=== PATIENT | female | born 1990 | race Caucasian/White ===

== ENCOUNTER 2020-03-04 13:31 | Emergency (ER) | payer OTHER, SELFPAY ==
[2020-03-04 13:45] VITALS: BP 125/65; PULSE 93; RESP 20; TEMP 36.6; O2SAT 98
--- NOTE | 2020-03-04 13:55 | ED.ABDPAIN ---
HPI - Abdominal Pain General Chief Complaint: Abdominal Pain Stated Complaint: Abdomen Pain History of Present Illness HPI narrative: This is a 29 year old that comes in complaining of left low quad abdominal pain that started this morning and it hurts when she stands feels like something is pulling per patient she threw up once today denies nausea and states she did not eat anything prior. Patient denies taking anything for her symptoms and her last BM was today. Patient informed me she does not take medication but the pain at this time is not there . Related Data Home Medications Medication Instructions Recorded Confirmed osugoldfli-mkfcqvoswygmn-yzqb 1 tablet PO Q6H PRN 03/04/20 03/04/20 cyclobenzaprine 10 mg PO TID 03/04/20 03/04/20 etonogestrel [Nexplanon] 1 implant SUBDERMAL ONCE 03/04/20 03/04/20 montelukast 10 mg PO HS 03/04/20 03/04/20 Allergies Allergy/AdvReac Type Severity Reaction Status Date / Time ibuprofen AdvReac Nausea and Verified 03/04/20 14:04 Vomiting Review of Systems Review of Systems: Narrative: CONSTITUTIONAL: Denies fever, chills, or sweats. EYES: Denies visual changes, redness, or discharge. ENT: Denies rhinorrhea, congestion, sore throat, or otalgia. CARDIOVASCULAR:Denies chest pain, palpitations, or edema. RESPIRATORY: Denies cough or dyspnea. GASTROINTESTINAL: Reports abdominal pain, nausea, vomiting, or diarrhea. GENITOURINARY: Denies dysuria or hematuria. SKIN:[Denies rash or itching. MUSCULOSKELETAL:Denies back pain, joint pain, or myalgia. NEUROLOGIC: Denies headache, numbness, or weakness. PSYCHIATRIC:Denies anxiety or depression PMFSH Comments At time as signature, I have reviewed and agree with nursing past medical, social, surgical and family history. Please see nursing chart for further information. There is no relevant family history pertinent to the presenting complaint. Exam Const: Other: GENERAL:Well-appearing, morbidly obese, and in no acute distress. HEAD:Normocephalic, atraumatic. EYES: PERRLA and EOMI. ENT: Nares clear, no rhinorrhea or epistaxis. Mucous membranes moist. NECK: Supple. CHEST: Clear to auscultation. No respiratory distress. HEART: Regular rate and rhythm. No murmur heard. Normal peripheral pulses. ABDOMEN: Soft, left lower quad is tender with palpation only if I ask per patient not that bad, nondistended, normal active bowel sounds. EXTREMITIES: Normal range of motion. No edema. SKIN: Warm, dry, no rash. NEURO: No focal deficits. Alert and oriented x3. Course Vital Signs Vital signs: Vital Signs Temperature 97.8 F 03/04/20 13:45 Pulse Rate 93 03/04/20 13:45 Respiratory Rate 03/04/20 13:45 Blood Pressure 125/65 03/04/20 13:45 Pulse Oximetry 98 03/04/20 13:45 Temperature 97.8 F 03/04/20 13:45 Pulse Rate 93 03/04/20 13:45 Respiratory Rate 03/04/20 13:45 Blood Pressure 125/65 03/04/20 13:45 Pulse Oximetry 98 03/04/20 13:45 Discharge Plan Discharge Clinical Impression: Abdominal pain Qualifiers: Abdominal location: unspecified location Qualified Code(s): R10.9 - Unspecified abdominal pain Patient Disposition: Home, Self-Care Condition: Stable Instructions: Antibiotic Form, Abdominal Pain (ED) Additional Instructions: No serious cause of abdominal pain is found at this time. It is important to carefully watch for changes in the abdominal pain that might suggest a serious condition. See your doctor or return to the emergency department immediately if your condition gets worse. These symptoms suggest serious causes of abdominal pain: Your unable to walk easily or walking in a bent over position. You are experiencing pain in the right lower part of her abdomen. Stepping or jumping results in severe pain. The abdomen is hard and painful when you press on it. There is severe abdominal pain when coughing. Prescriptions: New ondansetron 4 mg tablet,disintegrating 4 mg PO Q8H
== END 2020-03-04 14:35 | disposition home or self-care (01) ==
PROVIDERS: Emergency Provider Nurse Practitioner Family
DX: R10.32 Left lower quadrant pain (principal)
CPT/HCPCS: 99213; G0463

== ENCOUNTER 2025-11-12 11:28 | Emergency (ER) | payer OTHER, SELFPAY ==
[2025-11-12 11:36] VITALS: BP 133/89; PULSE 80; RESP 20; TEMP 36.6; O2SAT 97
--- NOTE | 2025-11-12 11:41 | ED_ITS ---
HPI - URI/Sore Throat General Chief Complaint: Upper Respiratory Infection Stated Complaint: Cough Time Seen by Provider: 11/12/25 11:41 Source: patient, RN notes reviewed and old records reviewed Mode of arrival: ambulatory Limitations: no limitations History of Present Illness HPI Narrative: 35 year old female with complaints of 1.5 weeks of cough with no complaints of fevers, chills ,nasal congestion or drainage or any sore throat. Patient reports that she has been taking allergy medication of Zyrtec.She also reports that she has noted that she is wheezing at night. MD elicited complaint: cough Onset (ago): week(s) (1.5 week) Consistency: intermittent Severity: moderate Able to tolerate fluids by mouth: Yes Treatments prior to arrival: other (allergy medication) Related Data Allergies Allergy/AdvReac Type Severity Reaction Status Date / Time ibuprofen AdvReac Nausea and Verified 11/12/25 11:52 Vomiting Review of Systems Review of Systems: CONSTITUTIONAL: Denies malaise, chills, sweats, or fever. EYES: Denies visual changes, redness, or discharge. ENT: Reports no rhinorrhea, congestion, sinus pain,no otalgia and no sore throat. CARDIOVASCULAR: Denies chest pain, palpitations, or edema. RESPIRATORY: Reports dry cough with some wheezing at night noted.? Denies dyspnea. GASTROINTESTINAL: Denies abdominal pain, nausea, vomiting, diarrhea SKIN: Denies rash or itching. MUSCULOSKELETAL: Denies myalgia. NEUROLOGIC: Denies headache. All systems reviewed & are unremarkable except as noted in HPI and below PMFSH Past Medical History Medical History (Updated 11/13/25 @ 15:12 by Breana Canales APRN) Ankle fracture, right Hx of migraines Fibromyalgia Social History Social History (Updated 11/13/25 @ 15:11 by Breana Canales APRN) Smoking status: Current every day smoker Tobacco type: e-cigarettes/vaping Alcohol use details: reports no alcohol Substance use type: does not use Living arrangements: with family Gender identity (if verbalized by the patient): Female Comments At time of signature, agree with nursing past medical, surgical, social and family history. There is no relevant family history pertinent to the presenting complaint Exam Narrative: GENERAL: Well-appearing, well-nourished, and in no acute distress. HEAD: Normocephalic EYES: PERRLA, conjunctivae clear ENT: Nares clear, turbinates edematous and erythematous, clear discharge. Mucous membranes moist. TM pearly jay with dull light reflex bilaterally; no tragal tenderness. Oropharynx erythematous without lesions. Tonsils not enlarged and without exudate, no drooling, no hoarseness, no trismus, uvula midline. NECK: Supple. No lymphadenopathy CHEST: Clear to auscultation, breath sounds equal. No wheezing, rhonchi, rales, or stridor. No respiratory distress, speaks in full sentences.cough noted denies any dyspnea SAO2 97% on room air HEART: Regular rate and rhythm. No murmur heard. SKIN: Warm, dry, no rash. NEURO: Alert and oriented x3. PSYCH: Normal mood and affect Course Course Level of Care: Express Care Visit Vital Signs Vital signs: Vital Signs Temperature 36.6 C 11/12/25 11:36 Pulse Rate 80 11/12/25 11:36 Respiratory Rate 20 11/12/25 11:36 Blood Pressure 133/89 11/12/25 11:36 Pulse Oximetry 97 11/12/25 11:36 Oxygen Delivery Room Air 11/12/25 11:36 Temperature 36.6 C 11/12/25 11:36 Pulse Rate 80 11/12/25 11:36 Respiratory Rate 20 11/12/25 11:36 Blood Pressure 133/89 11/12/25 11:36 Pulse Oximetry 97 11/12/25 11:36 Oxygen Delivery Room Air 11/12/25 11:36 reviewed MDM MDM Narrative Medical decision making narrative: Patient reports that she has had cough for 1.5 weeks with some wheezing at night noted, denies any ear pain, sore throat, body aches or any nasal congestion or any associated fevers or chills. . Patient taking Zyrtec for her symptoms, denies any history of asthma continues to vape daily. Rx for Prednisone sent and supportive measures with OTC medications. Anticipatory guidance and reasons to seek care in ED reviewed with uncerstanding voiced. Recommended no vaping Differential Diagnosis Differential Diagnosis: Differential diagnostic considerations for upper respiratory infection include upper respiratory infection, croup, otitis media, sinusitis, viral infection, bronchitis, influenza, pharyngitis, strep, uvulitis.? Critical Care Time Critical Care Time Critical Care Time: No Discharge Plan Discharge Clinical Impression: Cough in adult Patient Disposition: Home Condition: Stable Instructions: Antibiotic Form, Acute Cough (ED) Additional Instructions: Increase fluids especially juices and water Payq-nmu-ovzxorm cough and cold medicine of your choice for your symptoms, recommend Delsym cough medication or Robitussin DM Zyrtec, Claritin or Teresa daily can include Coricidin brand decongestant Steroids as directed--take with food heat to the face 20-30 minutes 4-6 times a day for pain Salt water gargles, throat lozenges or throat sprays as desired If your symptoms persist, change or worsen significantly before you can contact your personal physician then please, without delay, go to the emergency department for further evaluation. Follow-up with PCP in 7-10 days or sooner if needed Follow up with PCP soon in regards to your blood pressure which is elevated above threshold for referral. Blood pressure above 120/80 may indicate pre- hypertension.133/89 Avoid vaping Patient Language: Irish Prescriptions: New prednisone 20 mg tablet 40 mg PO DAILY 5 Days Qty: 10 0RF cetirizine [Zyrtec] 10 mg tablet 10 mg PO DAILY Qty: 30 0RF Follow-up/Referrals: Brittany,Gabby Viramontes APN [Primary Care Provider, Unknown] Time of Disposition: 12:19 Quality Santos Coma Scale Eyes: Open Verbal: Oriented and Alert Motor: Follows Commands [place] Coma Total Score: 15
--- OUTSIDE RECORDS SUMMARY | 2025-11-12 12:07 | XMS_ITS | Clinical Summary ---
Author Organization [facility] Address [address], [address] [address] Phone Care Team Providers Care Material Planning Analyst Name Role Phone Unavailable Primary Care Provider Unavailabl e Allergies Active Allergy Reactions Criticality Noted Date Comments Ibuprofen Nausea,Vomiting High 05/06/2019 Medications MEDICAL CANNABIS Active cyclobenzaprine (FLEXERIL) 10 MG Tablet Take 1 Tab by mouth 3 times daily as needed for Muscle spasms. 90 Tab 10/08/2020 Active HYDROcodone-garry taminophen (NORCO) 5-325 MG TabletIndicatio ns:Cellulitis of left hand Take 1 Tablet by mouth every 6 hours as needed for Moderate or more severe pain. 15 Tablet 07/22/2021 Active Active Problems Problem Noted Date Diagnosed Date IFG (impaired fasting glucose) 06/27/2020 Hypertriglyceridemia 06/27/2020 Medical marijuana use 12/12/2019 Migraine without status migrainosus, not intract able 12/12/2019 Anxiety 12/12/2019 Fibromyalgia 07/21/2018 Morbid obesity with BMI of 50.0-59.9, adult 04/16 Overview (05/06/2019): Last Assessment & Plan: Obesity is worsening. Discussed the patient's BMI. The BMI is above average; BMI management plan is completed. General weight loss/lifestyle modification strategies discussed (elicit support from others; identify saboteurs; non-food rewards, etc). Body mass index is 52.04 kg/m . Resolved Problems Problem Noted Date Diagnosed Date Resolved Date Right ankle pain 12/12/2019 06/27/2020 Immunizations Immunization Administration Dates Next Due Hepatitis A Vaccine 02/07/2013 TB Skin Test 09/26/2019,09/18/2019 TDAP Vaccine 03/07/2019,01/31/2018 Family History Medical History Relation Name Comments No Known Problems Brother Diabetes Father Hypertension Father No Known Problems Maternal Grandfather No Known Problems Maternal Grandmother No Known Problems Mother Cancer Paternal Grandfather Pacemaker Paternal Grandfather Congestive Heart Failure Paternal Grandmother Diabetes Paternal Grandmother No Known Problems Sister 1 No Known Problems Sister 2 Relation Name Status Comments Brother Alive Father Alive Maternal Grandfather Alive Maternal Grandmother Alive Mother Alive Paternal Grandfather Paternal Grandmother Alive Sister 1 Alive Sister 2 Alive Social History Tobacco Use Types Packs/Day Years Used Date Smoking Tobacco: Never Smokeless Tobacco: Never Tobacco Cessation:Counseling Given: Yes Alcohol Use Standard Drinks/Week Comments Not Currently 0 (1 standard drink = 0.6 oz pur e alcohol) PHQ-2 Answer Date Recorded PHQ-2 Score 0 12/12/2019 Comments No Sex and Gender Information Value Date Recorded Sex Assigned at Not on file Legal Sex Female 9:48 PM CDT Gender Identity Not on file Sexual Orientation Not on file 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 Not on file Not on file Not on file Last Filed Vital Signs Vital Sign Reading Time Taken Comments Blood Pressure 123/57 07/22/2021 8:30 PM CDT Pulse 83 07/22/2021 4:05 PM CDT Temperature 36.3 C (97.3 F) 07/22/2021 4:05 PM CDT Respiratory Rate 21 07/22/2021 4:05 PM CDT Oxygen Saturation 99% 07/22/2021 4:05 PM CDT Inhaled Oxygen Concentration - - Weight 149.7 kg (330 lb) 07/22/2021 4:12 PM CDT Height 165.1 cm (5' 5) 07/22/2021 4:12 PM CDT Body Mass Index 54.91 07/22/2021 4:12 PM CDT Plan of Treatment Health Maintenance Due Date Last Done Comments Hepatitis C Virus (HCV) Screening 1991 Varicella Immunization (1 of 2 - 13+ 2-dose series) 2004 Hepatitis B Immunization (1 of 3 - 19+ 3-dose series) 2010 Pap Smear 2012 Cervical Cancer Screening (CCS) 2021 HPV/Cotest 2021 Influenza Immunization (#1) 2025 SARS-COV-2 Immunization ( season) 2025 Td Immunization Every 10 Yea rs (Adults With 1 Tdap) 03/07/2029 03/07/2019, 01/31/2018 Respiratory Syncytial Virus (RSV) Immunization (Adult) (1 - 1-dose 75+ series) 2066 Human Papillomavirus (HPV) Immunization (No Doses Required) Completed Meningococcal Immunization (ACWY) Aged Out No longer eligible b ased on patient's age to complete this topic Pneumococcal Immunization Combined Aged Out No longer eligible b ased on patient's age to complete this topic Rotavirus Immunization Aged Out No lo nger eligible based on patient's age to complete this topic Insurance MEDICAID [place]
--- OUTSIDE RECORDS SUMMARY | 2025-11-12 12:07 | XMS_ITS | Clinical Summary ---
Author Organization [facility] Address [address] [place] [address] Care Team Providers Care Perfect Binder Setter Name Role Phone Unavailable Primary Care Provider Unavailabl e Source Comments [facility],non-owned Affiliates and Associated Physician Practices is amultiple site organization consisting of ambulatory clinics and hospital sitesin [place], [place], [place] and [place]. This disclosure is being madepursuant to the Care Everywhere program and may not contain all information available regarding this patient. Last updated 18.[facility] Allergies Active Allergy Reactions Criticality Noted Date Comments Ibuprofen GI Discomfort 11/10/2017 Medications * Be aware that medications may not be up to date on this document. Alwaysverify current medications with the patient. cyclobenzaprine (FLEXERIL) 10 MG tablet Take 10 mg by mouth 3 times daily as needed for Muscle Spasms Active metroNIDAZOLE (FLAGYL) 500 MG tablet Take 500 mg by mouth 2 times daily Active Vit-Fe Fumarate-FA ( VITAMIN) 28-0.8 MG tablet Take 1 tablet by mouth once daily Active aspirin-acetami nophen-caffeine 250-250-65 MG tablet Take 1 tablet by mouth every 4 hours as needed for Headache Active Active Problems Problem Noted Date Diagnosed Date Generalized pain 11/10/2017 Social History Tobacco Use Types Packs/Day Years Used Date Smoking Tobacco: Never Smokeless Tobacco: Never Alcohol Use Standard Drinks/Week Comments No 0 (1 standard drink = 0.6 oz pur e alcohol) Comments No Sex and Gender Information Value Date Recorded Sex Assigned at Not on file Legal Sex Female 4:21 AM MODELING AGENCY MANAGER Gender Identity Not on file Sexual Orientation Not on file Last Filed Vital Signs Vital Sign Reading Time Taken Comments Blood Pressure 123/58 11/10/2017 10:14 PM MODELING AGENCY MANAGER Pulse - - Temperature - - Respiratory Rate 18 11/10/2017 5:13 PM MODELING AGENCY MANAGER Oxygen Saturation - - Inhaled Oxygen Concentration - - Weight 108 kg (238 lb) 11/10/2017 4:53 PM MODELING AGENCY MANAGER Height 162.6 cm (5' 4) 11/10/2017 4:48 PM MODELING AGENCY MANAGER Body Mass Index 40.85 11/10/2017 4:48 PM MODELING AGENCY MANAGER Plan of Treatment Health Maintenance Due Date Last Done Comments HIV SCREENING 2006 HEPATITIS C SCREENING 06/29/2009 DTAP/TDAP/TD VACCINES (1 - Tdap) 2010 HEPATITIS B VACCINE (1 of 3 - 19+ 3-dose series) 2010 HPV VACCINE (1 - 3-dose SCDM series) 2018 DEPRESSION SCREENING 11/15/2024 COVID-19 VACCINE (1 - 2024-2 6 season) 2025 INFLUENZA VACCINE (#1) 2025 ZOSTER VACCINE (1 of 2) 2041 HIB VACCINE Aged Out No longer eligi ble based on patient's age to complete this topic MENINGOCOCCAL (Group B) VACC INE SHARED DECISION-MAKING Aged Out No longer eligibl e based on patient's age to complete this topic MENINGOCOCCAL GROUPS A/C/Y/W VACCINE Aged Out No longer eligible b ased on patient's age to complete this topic PNEUMOCOCCAL VACCINE Aged Out No long er eligible based on patient's age to complete this topic Insurance [place]ICAID - [place] [facility] MEDICAID - OUT OF STATE [facility] Advance Directives * Full Code (Latest Code Status on File) Date Activated Date Inactivated Comments 11/10/2017 5:00 PM 11/10/2017 11:50 PM
--- OUTSIDE RECORDS SUMMARY | 2025-11-12 12:07 | XMS_ITS | Clinical Summary ---
Author Organization [facility] Address [address] [place] [address] Care Team Providers Care Data Virtualization Consultant Name Role Phone Unavailable Primary Care Provider Unavailabl e Social History Tobacco Use Types Packs/Day Years Used Date Smoking Tobacco: Never Assessed Comments Unknown Sex and Gender Information Value Date Recorded Sex Assigned at Not on file Legal Sex Female 4:09 AM MACHINE OPERATOR CANE CUTTER Gender Identity Not on file Sexual Orientation Not on file Plan of Treatment Health Maintenance Due Date Last Done Comments HEPATITIS B VACCINES (1 of 3 - 19+ 3-dose series) 2010 HPV/Cotest (21-29) 2012 CERVICAL CANCER SCREENING 2021 HPV/Cotest (30-65) 2021 PAP SMEAR 2021 INFLUENZA VACCINE (#1) 2025 DTAP/TDAP/TD VACCINES (3 - Td or Tdap) 03/07/2029, 01/31/2018 HPV VACCINES (No Doses Required) Completed
--- OUTSIDE RECORDS SUMMARY | 2025-11-12 12:07 | XMS_ITS | Encounter Summary ---
Author Organization [facility] Address [address] [place] [address] Phone Care Team Providers Care Train Control Technician Name Role Phone No, Physician Primary Care Provider [phone] No, Physician Primary Care Provider [phone] Clare Hunt MD Primary Care Provider [phone] Anamika, Physician Primary Care Provider [phone] Anamika, Physician Primary Care Provider [phone] Clare Hunt MD Primary Care Provider [phone] Gabby Soto NP Primary Care Provider Encounter Details Date Type Department Care Team (Latest Contact Info) Description 02/03/2018 Orders Only [facility] CONVERSION Scanning, Provider Social History Tobacco Use Types Packs/Day Years Used Date Smoking Tobacco: Former Smokeless Tobacco: Never Comments:Smoking History Pac ks/day: 2 Cigarettes Alcohol Use Standard Drinks/Week Comments No 0 (1 standard drink = 0.6 oz pur e alcohol) Comments Yes Sex and Gender Information Value Date Recorded Sex Assigned at Not on file Legal Sex Female 12:08 PM CAREGIVER ASSISTED LIVING Gender Identity Not on file Sexual Orientation Not on file documented as of this encounter Plan of Treatment Not on file documented as of this encounter Procedures Procedure Name Priority Date/Time Associated Diagnosis Comments OBSTETRIC/GYNECOLOGY ULTRASONOGRAPHY REPORT 02/03/2018 2:57 PM CDT documented in this encounter Results * OBSTETRIC/GYNECOLOGY ULTRASONOGRAPHY REPORT (02/03/2018 2:57 PM CDT) Anatomical Region Laterality Modality Ultrasound us Provider Scanning IMG OB US PROCEDURES Final Res ult documented in this encounter Visit Diagnoses Not on filedocumented in this encounter Additional Health Concerns Infection Onset Date Last Indicated Resolved Time MDR gram neg/ESBL Comment:Patients who received care at a healthcare facility outside of the [place] will be placed in Contact Precautions until infection or colonization with specific highly resistant bacteria can be ruled out. Infection Prevention will arrange screening. Please contact Infection Prevention. 04/19/2023 04/19/2023 documented as of this encounter Care Teams Train Control Technician Relationship Specialty Start Date End Date No, Physician PCP - General 01/07/18 02/08/18 No, Physician PCP - General 02/09/18 02/13/18 [place] [address] [address] PCP - General Family Medicine 02/14/18 02/23/18 No, Physician PCP - General 02/24/18 03/01/18 No, Physician PCP - General 03/02/18 03/10/18 [place] [id number] [address] PCP - General Family Medicine 03/11/18 03/24/23 Gabby Soto NP [address] [place] [id number] PCP - General Nurse Practitioner 05/05/23 documented as of this encounter
--- OUTSIDE RECORDS SUMMARY | 2025-11-12 12:07 | XMS_ITS | Encounter Summary ---
Author Organization [facility] Address [address] [place] [address] Phone Care Team Providers Care Trading Analyst Name Role Phone No, Physician Primary Care Provider [phone] Clare Hunt MD Primary Care Provider [phone] No, Physician Primary Care Provider [phone] Anamika, Physician Primary Care Provider [phone] Clare Hunt MD Primary Care Provider [phone] Anamika, Physician Primary Care Provider Anamika, Physician Primary Care Provider [phone] Clare Hunt MD Primary Care Provider [phone] Gabby Soto NP Primary Care Provider [phone] Encounter Details Date Type Department Care Team (Late st Contact Info) Description 11/05/2017 Orders Only [facility] ProviderJaneth MD [facility] [place] [address] Social History Tobacco Use Types Packs/Day Years Used Date Smoking Tobacco: Former Smokeless Tobacco: Never Comments:Smoking History Pac ks/day: 2 Cigarettes Alcohol Use Standard Drinks/Week Comments No 0 (1 standard drink = 0.6 oz pur e alcohol) Comments Yes Sex and Gender Information Value Date Recorded Sex Assigned at Not on file Legal Sex Female 12:08 PM ARTIFACTS CONSERVATOR Gender Identity Not on file Sexual Orientation Not on file documented as of this encounter Plan of Treatment Not on file documented as of this encounter Procedures Procedure Name Priority Date/Time Associated Diagnosis Comments DISCHARGE LABORATORY CUMULATIVE REPORT 11/05/2017 12:00 AM ARTIFACTS CONSERVATOR documented in this encounter Results * DISCHARGE LABORATORY CUMULATIVE REPORT (11/05/2017 12:00 AM ARTIFACTS CONSERVATOR) Narrative 11/05/2017 12:00 AM ARTIFACTS CONSERVATOR Ordered by an unspecified provider. us Historical Provider LAB BLOOD ORDERABLES Mel l Result documented in this encounter Visit Diagnoses Not [...] documented as of this encounter Care Teams Trading Analyst Relationship Specialty Start Date End Date No, Physician PCP - General 10/29/17 11/09/17 [place] [address] [id number] PCP - General Family Medicine 11/10/17 01/06/18 No, Physician PCP - General 01/07/18 02/08/18 No, Physician PCP - General 02/09/18 02/13/18 [place] [id number] [address] [facility] [address] [place] [address] PCP - General Family Medicine 02/14/18 02/23/18 No, Physician PCP - General 02/24/18 03/01/18 No, Physician PCP - General 03/02/18 03/10/18 [place] [address] [address] [facility] [address] [place] [address] PCP - General Family Medicine 03/11/18 03/24/23 Gabby Soto NP [address] [place] [address] PCP - General Nurse Practitioner 05/05/23 documented as of this encounter
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
--- OUTSIDE RECORDS SUMMARY | 2025-11-12 12:12 | XMS_ITS | Continuity of Care Document ---
Author Organization [facility] Address [address] [place] [address] Care Team Providers Care Forest Patrolman Name Role Phone GABBY BONILLA Primary Care Provider Assessment No assessment recorded. Plan of Treatment Reminders Order Date Submit Date Provider Last Modified By Organization Details Last Modified Time Details Appointments ANY 15 2025 10:00A M Gabby Bonilla APN, WEIGHT LOSS PHYSICIAN-C Not available Not available Not available Lab drug screen, urine 2024 025 [facility], [address] [facility] [address], [place], [address], 09/07/2025 20:09:58 Referral None recorded. Procedures None recorded. Surgeries None recorded. Imaging XR, lumbosacr al spine, 2 or 3 view 2024 025 [facility]), [address], [place], [address], 09/24/2025 11:57:24 XR, thoracic spine, 2 view 2024 025 [facility]), [address], [address], [place], [address], 09/24/2025 11:57:44 US, abdomen, complete 2024 025 [facility]), [address], [place], [address], 09/24/2025 11:00:36 Medication Orders hydroxyzi ne HCl 25 mg tablet 2024 025 [id number], [address], [place], [id number], 09/06/2025 10:42:08 Patient TargetsNo targets recorded. Patient Instructions Encounter Date Encounter Id Patient Instructions Last Modified By Organization Details Last Modified Time 09/06/2025 [id number] A healthy lifestyle: care instructions Not available 09/06/2025 10:54:50 learning about mood disorders Not available 09/06/2025 10:41:57 Continue all medications as prescribed. Not available 09/06/2025 10:39:50 Follow-up 3 months for drug compliance Not available 09/10/2025 17:56:03 Reason for Referral None Reported. Results Created Date Observation Date Name Description Value Unit Range Abnormal Flag Note LastModifiedBy Organization Detail LastModifiedTime 09/06/2009/06/2025 [id number] 12+OX YCODO NE+CR T-SCR please note: COMMEN T This assay provi julia a preli minar y uncon firme d whitney tical test resul t that may be suita ble for clini sukumar manag ement of patie nts in certa in situa tions . Drug- test resul ts shoul d be inter prete d in the aram xt of clini sukumar infor nicola n[place] Patie nt metab olic varia bles, speci fic drug chemi stry, and speci men orestes cteri stics can affec t test outco me. Techn ical consu ltati on is avail able if a test resul t is incon siste nt with an expec cristhian outco me. Email : [email or web address] [email or web address] Phone : [phone] Not Available [facility] ([facility]) [address] [facility] [address], [place], [address], 09/07/2025 20:09:58 09/06/2009/07/2025 [id number] 12+OX YCODO NE+CR T-SCR amphetamines screen, urine NEGATI VE NG/mL cutoff =1000 Not Available [facility] ([facility]) [address] [place], [address], 09/07/2025 20:09:58 09/06/20 25 09/07/2025 [id number] 0 12+OX YCODO NE+CR T-SCR barbiturates screen, urine NEGATI VE NG/mL cutoff =200 Not Available [facility] ([facility]) [address] [place], [address], 09/07/2025 20:09:58 09/06/20 25 09/07/2025 [id number] 12+OX YCODO NE+CR T-SCR benzodiazepi charleen screen, urine NEGATI VE NG/mL cutoff =200 Not Available [facility] ([facility]) [address] [place], [address], 09/07/2025 20:09:58 09/06/20 25 09/07/2025 [id number] 12+OX YCODO NE+CR T-SCR cannabinoid screen, urine POSITI VE NG/mL cutoff =20 abnormal Not Available [facility] ([facility]) [address] [place], [address], 09/07/2025 20:09:58 09/06/20 25 09/07/2025 [id number] 0 12+OX YCODO NE+CR T-SCR cocaine (metab.) screen, urine NEGATI VE NG/mL cutoff =300 Not Available [facility] ([facility]) [address] [place], [address], 09/07/2025 20:09:58 09/06/20 25 09/07/2025 [id number] 12+OX YCODO NE+CR T-SCR opiate screen, urine NEGATI VE NG/mL cutoff =300 Opiat e test inclu julia Codei ne, Morph ine, [place] morph one, [place] codon e. Not Available [facility] ([facility]) [address] [place], [address], 09/07/2025 20:09:58 09/06/20 25 09/07/2025 [id number] 12+OX YCODO NE+CR T-SCR oxycodone/ox ymorphone, urine NEGATI VE NG/mL cutoff =100 Test inclu julia Oxyco done and Oxymo rphon e Not Available [facility] ([facility]) [address] [place], [address], 09/07/2025 20:09:58 09/06/20 25 09/07/2025 [id number] 12+OX YCODO NE+CR T-SCR phencyclidin e screen, urine NEGATI VE NG/mL cutoff =25 Not Available [facility] ([facility]) [address] [place], [address], 09/07/2025 20:09:58 09/06/20 25 09/07/2025 [id number] 0 12+OX YCODO NE+CR T-SCR methadone screen, urine NEGATI VE NG/mL cutoff =300 Not Available [facility] ([facility]) [address] [place], [address], 09/07/2025 20:09:58 09/06/20 25 09/07/2025 [id number] 0 12+OX YCODO NE+CR T-SCR propoxyphene screen, urine NEGATI VE NG/mL cutoff =300 Not Available [facility] ([facility]) [address] [place], [address], 09/07/2025 20:09:58 09/06/20 25 09/07/2025 [id number] 0 12+OX YCODO NE+CR T-SCR meperidine screen, urine NEGATI VE NG/mL cutoff =200 This test was devel oped and its perfo rmanc e orestes cteri stics deter mined by [facility]. It has not been clear ed or appro romulo by the Food and Drug Admin istra tion. Not Available [facility] ([facility]) [address] [facility] [address], [place], [address], 09/07/2025 20:09:58 09/06/20 25 09/07/2025 [id number] 0 12+OX YCODO NE+CR T-SCR fentanyl, urine NEGATI VE pg/mL cutoff =2000 Test inclu julia Fenta nyl and Norfe ntany l This test was devel oped and its perfo rmanc e orestes cteri stics deter mined by [facility]. It has not been clear ed or appro romulo by the Food and Drug Admin istra tion. Not Available [facility] ([facility]) [address] [facility] [address], [place], [address], 09/07/2025 20:09:58 09/06/20 25 09/07/2025 [id number] 0 12+OX YCODO NE+CR T-SCR tramadol screen, urine NEGATI VE NG/mL cutoff =200 Not Available [facility] ([facility]) [address] [facility] [address], [place], [address], 09/07/2025 20:09:58 09/06/20 25 09/07/2025 [id number] 12+OX YCODO NE+CR T-SCR creatinine, urine 124.6 mg/dL 20.0-3 00.0 Not Available [facility] ([facility]) [address] [facility] [address], [place], [address], 09/07/2025 20:09:58 09/06/20 25 09/07/2025 [id number] 0 12+OX YCODO NE+CR T-SCR pH, urine 5.4 4.5-8. 9 Not Available [facility] ([facility]) [address] [facility] [address], [place], [address], 09/07/2025 20:09:58 09/24/20 25 09/24/2025 US, abdom en, compl ete No observ ation record ed. [facility] [address], [place], [address], 09/26/2025 10:42:31 09/24/20 25 09/24/2025 XR, lumbo sacra l spine , 2 or 3 view No observ ation record ed. [facility]) [address], [place], [address], 09/27/2025 10:00:34 09/24/20 25 09/24/2025 XR, thora cic spine , 2 view No observ ation record ed. [facility] [address], [place], [address], 09/26/2025 10:42:31 Result Notes None recorded. Problems Name Problem SNOMED Code Status Onset Date Resolution Date Notes Provider Name and Address Organization Details Recorded Time Migraine 02857416 Active 2019 Maeve Lizarraga MA null, [place] - [facility] 0 10:46:01 Fibromyalgi a 739426249 Active 2019 Maeve Lizarraga MA null, [place] - [facility] 0 10:46:07 History of heartburn 1258001288912 9 Active 2019 Gabby Bonilla APN, FNP-Devan Attn: Ashish g,[address] [facility], [place], [address], [place] - [facility] 0 11:20:47 Obesity 334450540 Active 2024 Gabby Bonilla APN, FNP-C Attn: Ashish g,[address] [facility], [place], [address], [place] - [facility] 5 10:08:12 Mood disorder 29685674 Active 2024 Gabby Bonilla APN, FNP-C Attn: Ashish g,[address] [facility], [place], [address], [place] - [facility] 5 10:18:45 Problem Notes None recorded. Procedures Surgical History Date Name Laterality Status Provider Name and Address Organization Details Recorded Time 03/10/20 23 abdominoplasty completed Carlie Piercete [facility] 04/29/2023 14:20:53 Arthr tristan singh df tyler&/tib completed Maeve Lizarraga MA [facility] 10/24/2020 10:45:32 Imaging Results None recorded. Procedure Notes None recorded. Medical Equipment None Reported. Allergies Allergen ID Allergen Name Allergen Category Reaction Reaction Severity Criticality Documentation Date Start Date Code Code System Note Provider Name and Address Organization Details Recorded Time 200663 ibuprofen medicatio n nausea Not available Not available 10/24/2020 5640 RxNorm Maeve Lizarraga MA null, [place] - [facility] 0 10:37:04 636335 Adhesive agent (substanc e) environme nt,medica tion rash Not available high 09/05/20252022 20952 0007 SNOMED Paper tape Not Available ira - External Data Service - prod 5 08:45:12 Medications Name Sig Start Date Stop Date Status Note LastModified by Organization Details LastModified Time cyclobenzap rine 10 mg tablet TK 1 T PO TID PRF MSP 04/29 completed Not Available Not Available Not Available amoxicillin 500 mg capsule TAKE ONE CAPSULE BY MOUTH THREE TIMES DAILY FOR 10 DAYS 04/29 completed Not Available Not Available Not Available silver sulfadiazin e 1 % topical cream APPLY TO CLEANSED WOUND UP TO TWICE DAILY 09/03 completed Not Available Not Available Not Available promethazin e-DM 6.25 mg-15 mg/5 mL oral syrup TAKE 5ML BY MOUTH EVERY 4 HOURS NEEDED FOR COUGH 10/24 completed Not Available Not Available Not Available doxycycline hyclate 100 mg capsule 04/29 completed Not Available Not Available Not Available clindamycin HCl 300 mg capsule Take 1 capsule twice a day by oral route. 02/22 completed Not Available Not Available Not Available cetirizine 10 mg tablet TAKE 1 TABLET BY MOUTH DAILY FOR 7 DAYS 02/22 completed Not Available Not Available Not Available fluconazole 150 mg tablet TAKE 1 TABLET BY MOUTH 1 TIME 02/22 completed Not Available Not Available Not Available hydrocodone 5 mg-acetamin ophen 325 mg tablet TAKE 1 TABLET BY MOUTH EVERY 6 HOURS NEEDED FOR MODERATE TO SEVERE PAIN 04/29 completed Not Available Not Available Not Available meloxicam 15 mg tablet Take 1 tablet every day by oral route. 02/22 completed Not Available Not Available Not Available metronidazo le 0.75 % (37.5 mg/5 gram) vaginal gel PLEASE SEE ATTACHED FOR DETAILED DIRECTION S 04/29 completed Not Available Not Available Not Available phentermine 15 mg capsule TAKE 1 CAPSULE BY MOUTH EVERY DAY IN THE MORNING active Not Available Not Available No t Available clindamycin HCl 150 mg capsule TAKE 2 CAPSULES BY MOUTH EVERY 6 HOURS UNTIL ALL TAKEN 04/29 completed Not Available Not Available Not Available metronidazo le 500 mg tablet TAKE 1 TABLET BY MOUTH TWICE DAILY FOR 7 DAYS. DO NOT DRINK ALCOHOL ON THIS MEDICATIO N 02/22 completed Not Available Not Available Not Available sulfamethox azole 800 mg-trimetho prim 160 mg tablet TAKE 1 TABLET BY MOUTH TWICE DAILY FOR 10 DAYS 04/29 completed Not Available Not Available Not Available triamcinolo ne acetonide 0.1 % topical cream APPLY TOPICALLY TO THE AFFECTED AREA TWICE DAILY. AVOID USE ON FACE AND GENITALS active Not Available Not Available No t Available butalbital- acetaminoph en-caffeine 50 mg-325 mg-40 mg tablet TK 1 T PO D PRF HEADACHES OR MIGRAINE 04/29 completed Not Available Not Available Not Available ondansetron 8 mg disintegrat ing tablet DISSOLVE 1 TABLET ON THE TONGUE THREE TIMES DAILY NEEDED 04/29 completed Not Available Not Available Not Available oxycodone-a cetaminophe n 5 mg-325 mg tablet TAKE 1 TO 2 TABLETS BY MOUTH EVERY 6 HOURS NEEDED FOR PAIN. NO MORE THAN 6 TABLETS PER DAY. 04/29 completed Not Available Not Available Not Available gabapentin 300 mg capsule TK 1 C PO BID 10/24 completed Not Available Not Available Not Available omeprazole 20 mg capsule,del ayed release TK 1 C PO D 10/24 completed Not Available Not Available Not Available montelukast 10 mg tablet TK 1 T PO QPM 10/24 completed Not Available Not Available Not Available hydroxyzine HCl 25 mg tablet TAKE 1 TABLET BY MOUTH THREE TIMES DAILY NEEDED active Not Available Not Available No t Available mupirocin 2 % topical ointment APPLY TOPICALLY TO THE AFFECTED AREA TWICE DAILY 02/22 completed Not Available Not Available Not Available ergocalcife rol (vitamin D2) 1,250 mcg (50,000 unit) capsule TAKE 1 CAPSULE BY MOUTH EVERY WEEK 09/06 completed Not Available Not Available Not Available cefuroxime axetil 500 mg tablet TAKE 1 TABLET BY MOUTH TWICE DAILY FOR 10 DAYS 04/29 completed Not Available Not Available Not Available levofloxaci n 750 mg tablet TAKE 1 TABLET BY MOUTH EVERY DAY FOR 7 DAYS 02/22 completed Not Available Not Available Not Available methylpredn isolone 4 mg tablets in a dose pack FOLLOW PACKAGE DIRECTION S 02/22 completed Not Available Not Available Not Available albuterol sulfate HFA 90 mcg/actuati on aerosol inhaler INL 2 PFS PO Q 4 H PRN COU 10/24 completed Not Available Not Available Not Available ondansetron 4 mg disintegrat ing tablet DIS 1 T ON THE TONGUE Q 8 H PRF NAUSEA OR VOM 10/24 completed Not Available Not Available Not Available fluticasone propionate 50 mcg/actuati on nasal spray,suspe nsion SHAKE LQ AND U 2 SPRAYS IEN D 10/24 completed Not Available Not Available Not Available itraconazol e 100 mg capsule TAKE 2 CAPSULES BY MOUTH TWICE DAILY FOR 7 DAYS 02/22 completed Not Available Not Available Not Available amoxicillin 500 mg-potassiu m clavulanate 125 mg tablet TK 1 T PO BID FOR 7 DAYS 10/24 completed Not Available Not Available Not Available hydroxyzine pamoate 25 mg capsule TAKE 1 CAPSULE BY MOUTH EVERY 6 HOURS 02/22 completed Not Available Not Available Not Available nitrofurant oin monohydrate /macrocryst als 100 mg capsule TAKE 1 CAPSULE BY MOUTH TWICE DAILY FOR 5 DAYS 09/03 completed Not Available Not Available Not Available Nexplanon 68 mg subdermal implant Inject by subcutane ous route. active Not Available Not Available No t Available Vitals Date Recorded Body height Body mass index (BMI) Body weight Oxygen saturation Respiratory rate Body temperature Heart rate Systolic And Diastolic Provider Name and Address Organization Details Last Updated DateTime 5 165.1 cm 55.1 kg/m2 756184. 07 g 98 % 16 /min 98 [degF] 84 /min 128/84 mm[Hg] YANNA Cardona [place] - [facility] 10/23/202 5 10:37:27 Social History Question Answer Notes LastModified by Organizat ion Details LastModified Time Tobacco Smoking Status Never Smoker Maeve Lizarraga MA [facility], [facility] 10/24/2020 10:39:09 Do You Have An Advance Directive? No Information n ot available 10/24/2020 Are You Blind Or Do You Have Difficulty Seeing? No [email or web address] Information n ot available 04/29/2023 What Is Your Level Of Caffeine Consumption? Moderate Coffee Information not available 09/06/2025 How Much Tobacco Do You Chew? None Information not available 10/24/2020 In The 14 Days Before Symptom Onset, Have You Had Close Contact With A Laboratory-confirm ed COVID-19 While That Case Was Ill? No Information n ot available 10/24/2020 In The 14 Days Before Symptom Onset, Have You Had Close Contact With A Person Who Is Under Investigation For COVID-19 While That Person Was Ill? No Information not available 10/24/2020 Have You Been To An Area Known To Be High Risk For COVID-19? No Information not available 10/24/2020 Are You Deaf Or Do You Have Serious Difficulty Hearing? No Information not available 04/29/2023 What Type Of Diet Are You Following? REGULAR Information n ot available 02/22/2025 Which Illicit Or Recreational Drugs Have You Used? Medical Cannabis Card Information not available 10/24/2020 Education 12 Information no t available 10/24/2020 Are There Any Guns Present In Your Home? No Information not available 10/24/2020 Hard Of Hearing Or Deaf In One Or Both Ears? No Information not available 10/24/2020 Legally Blind In One Or Both Eyes? No Information no t available 10/24/2020 Marital Status Single Informatio n not available 10/24/2020 What Was The Date Of Your Most Recent Tobacco Screening? 09/06/2025 Information not available 09/06/2025 How Many Children Do You Have? 2 [email or web address] Information not available 04/29/2023 Performs Monthly Self-breast Exam? No Information no t available 10/24/2020 What Is Your Relationship Status? Single [email or web address] Information not available 04/29/2023 Do You Use Your Seat Belt Or Car Seat Routinely? Yes [email or web address] Information not available 04/29/2023 Seat Belts Used Routinely Yes Information not available 10/24/2020 Smoke Alarm In Home Yes Information not available 10/24/2020 Do You Have Smoke And Carbon Monoxide Detectors In Your Home? Yes [email or web address] Information not available 04/29/2023 Are You Passively Exposed To Smoke? No [email or web address] Information no t available 04/29/2023 How Much Tobacco Do You Smoke? No Information not available 10/24/2020 General Stress Level Medium Information not available 10/24/2020 Do You Use Sunscreen Routinely? Yes Information not available 10/24/2020 Has Tobacco Cessation Counseling Been Provided? Yes [email or web address] Information not available 04/29/2023 On What Date Was Tobacco Cessation Counseling Provided? 09/06/2025 Information not available 09/06/2025 Sex: Female Functional Status Question Answer Note LastModified by Organizat ion Details LastModified Time Do you use any illicit or recreational drugs? Yes brit [email or web address] Information not available 04/29/2023 Do you or have you ever used any other forms of tobacco or nicotine? No [email or web address] Information not available 04/29/2023 What is your level of alcohol consumption? None [email or web address] Information not available 04/29/2023 Do you or have you ever used smokeless tobacco? Never used smokeless tobacco Information not available 10/24/2020 Are you currently employed? Yes Information not available 02/22/2025 Are you able to care for yourself independently? 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 Never used electronic cigarettes Information not available 10/24/2020 What is your exercise level? Occasional Information not available 10/24/2020 Mental Status Question Answer Note LastModified by Organization D etails LastModified Time Do you feel stressed (tense, restless, nervous, or anxious, or unable to sleep at night)? [id number] Information not available 09/06/2025 Family History Relationship Description Onset Age of this Age Resolved Age Notes LastModified by Organization Details LastModified Time Father Diabetes mellitus [email or web address] Not available 2019 10:45:13 Paternal Grandmother Diabetes mellitus [email or web address] Not available 04/29 14:29:15 Paternal Grandfather Hypertensive disorder [email or web address] Not available 04/29 14:29:27 Medical History Condition Response Coronary Artery Disease N Other N High Blood Pressure N Atrial Fibrillation N Thyroid Problems N Kidney or Bladder Problems N GI Problems Y Depression N COPD N Blood Clots N Skin Problems N Eating Disorder N Anemia N Heart Attack ([place]) N Diabetes N Anxiety Disorder Y Muscle, Joint, or Bone Problems N Seizures/Epilepsy N Acid Reflux (GERD) N Cancer N Stroke N Asthma N Allergies N ADHD N Substance Abuse N High Cholesterol N Hepatitis N Liver Disease N Schizophrenia N Headaches Y Osteoporosis N Heart Failure N Gynecological History Statement/Question Response Menses Monthly N Duration of Flow (days) 5 Current Control Method Implant Date of LMP 08/06/2025 LMP Approximate Obstetrics History GPAL:G 4 P 2 0 2 2 Type Value Full Term 2 Induced 2 Living 2 Total 4 Immunizations Vaccine Type Date Status Note Provider Name and Address Organization Details Recorded Time Hep A, adult 02/08/20 13 completed Gabby Bonilla APN, FNP-C Attn: Accounting,[address] [place], [address], [facility] 04/29/2023 14:37:28 Tdap 02/01/20 18 completed Gabby Bonilla APN, FNP-C Attn: Accounting[address] [place], [address], [facility] 02/22/2025 10:07:55 Tdap 03/07/20 19 completed Gabby Bonilla APN, FNP-C Attn: Accounting[address] [place], [address], [facility] 02/22/2025 10:07:55 Influenza, split virus, quadrivalent, preservative 10/24/20 20 cancelled patient objection Gabby Bonilla APN, WEIGHT LOSS PHYSICIAN-C Attn: Accounting,[address] [facility], [place], [address], [facility] 10/24/2020 11:30:42 Hep A, adult 08/30/20 23 completed Ciara Urrutia LPN null, [facility] 08/30/2023 15:27:07 Past Encounters Encounter ID Performer Location Encounter Start Date Encounter Closed Date Diagnosis/Indication Diagnosis SNOMED-CT Code Diagnosis ICD10 Code Diagnosis IMO Codes Diagnosis Note [id number] MD Jyotsna Giron ([facility]) [address] [place] [address] 09/06/2025 10:25:23 09/11/2025 12:18:50 Mood disorder 80379850 F39 Patient currently seeing a therapist, was recommende d to try Vistaril, I will send prescripti on Abdominal discomfort 433 51012 R10.9 080130 Diffuse intermitte nt pain at surgical scar site, we will order ultrasound Obese class III 58349834 5 E66.813 E66.3 [id number] advised low fat, low cholestero l diet, regular exercise and weight reduction. pt wants to try phentermin e, dwp cs policy Chronic low back pain 27 4587037 M54.50 G89.29 57552068 Tender to palpation, positive SLR, we will order x-ray, plan pending imaging Chronic th oracic back pain 5755235860 26509 M54.6 G89.29 04291600 ttp, plan pending imaging Long-term current use of drug therapy 800039692 Z79.957 3662951 CS contract and drug screen yearly per policy Health Concerns Section Related Observation LastModified by Organization Detai ls LastModified Time None Recorded Concern Status LastModified by Organization Details LastModified Time None Recorded Payers Encounter Date Sequence Insurance Name Policy Number Policy Boles Covered Member ID Boles Member ID Guarantor Name 09/06/2025 1 [facility] (MEDICAID HMO) [id number] Lavonne Lundberg [id number] Lavonne Lundberg Notes Date Note Type Note Provider Name and Address Organization Details Recorded Time 09/06/2025 text/html Patient here today with for follow-up exam, complains of abdominal pain- denies constipation or diarrhea. states she feels knots in her stomach near her incisionspt states her old back hurts but pain mainly middle of back on right side. does see chiropractor but last year pain has got worseTherapist recommended pt getting on hydroxyzine Patient would like to be on GLP 1 medication, however is aware that her insurance will not cover this, would like to be on stimulants such as phentermine if possible, has taken previously and tolerated it well Gabby Bonilla APN, WEIGHT LOSS PHYSICIAN-C Attn: Accounting,[address] [facility], [place], [address], [facility] 09/10/2025 17:56:57 OBGyn Episode No OBEpisode recorded.
--- OUTSIDE RECORDS SUMMARY | 2025-11-12 12:12 | XMS_ITS | Data Portability ---
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 Not available 10/24/2020 11:20:13 Plan of Treatment Reminders Order Date Submit Date Provider Last Modified By Organization Details Last Modified Time Details Appointments ANY 15 2025 10:00A M Gabby Bonilla, OG, FISH CUTTER-C Not available Not available Not available Lab drug screen, urine 2024 025 [facility], [address] [place] [address], [address], 09/07/2025 20:09:58 HbA1c (hemoglob in A1c), blood 2024 025 [facility], [address] [place] [address], [place], [address], 02/23/2025 10:50:00 vitamin D, 25-hydrox y, total, serum 2024 025 [facility], [address] [place] [address], [place], [address], 02/23/2025 10:50:04 TSH, ultra-sen sitive, serum 2024 025 [facility], [address], [place], [address], 02/23/2025 10:49:59 CMP, serum or plasma 2024 025 [facility], [address], [place], [address], 02/23/2025 10:49:57 lipid panel, serum 2024 025 [facility], [address], [place], [address], 02/23/2025 10:49:56 CBC 2024 025 [facility], [address], [place], [address], 02/23/2025 10:50:03 TSH, ultra-sen sitive, serum 2022 023 [facility], [address], [place], [address], 04/30/2023 10:37:16 CMP, serum or plasma 2022 023 [facility], [address], [place], [address], 04/30/2023 03:08:16 lipid panel, serum 2022 023 [facility], [address], [place], [address], 04/30/2023 03:08:15 culture, wound 2022 023 [facility], [facility], [place], [address], 04/29/2023 15:17:21 culture, wound 2022 023 [facility], [address] [facility], [place], [address], 05/05/2023 09:15:15 CBC w/ auto diff 2022 023 [facility], [address] [place] [address], [facility], [place], [address], 04/30/2023 03:08:17 ESR (erythroc yte sedimenta tion rate), blood 2019 020 [facility], [address] [place] [address], [place], [address], 10/24/2020 11:30:53 C reactive protein, QN, serum or plasma 2019 020 [facility], [address] [place] [address], [place], [address], 10/24/2020 11:30:51 magnesium , serum or plasma 2019 020 [facility], [address] [place] [address], [place], [address], 10/24/2020 11:30:54 vitamin B12, serum 2019 020 [facility], [address] [place] [address], [facility] [address], [place], [address], 10/24/2020 11:30:52 vitamin D, 25-hydrox y, total, serum 2019 020 [facility], [address] [place] [address], [place], [address], 10/24/2020 11:30:53 TSH, ultra-sen sitive, serum 2019 [facility], [address], [place], [address], 10/24/2020 11:30:52 CMP, serum or plasma 2019 [facility], [address], [place], [address], 10/24/2020 11:30:54 lipid panel, serum 2019 [facility], [address], [place], [address], 10/24/2020 11:30:52 CBC 2019 [facility], [address], [place], [address], 10/24/2020 11:30:50 Referral wound care referral - Patient has appt on May 10 at 8am. Thank you 2022 023 [facility], [address], [address], [place], [address], 05/12/2023 12:51:44 Procedures None recorded. Surgeries None recorded. Imaging XR, lumbosacr al spine, 2 or 3 view 2024 025 [facility] [address], [address], [place], [address], 09/24/2025 11:57:24 XR, thoracic spine, 2 view 2024 025 [facility] [address], [address], [place], [address], 09/24/2025 11:57:44 US, abdomen, complete 2024 025 [facility] [address], [address], [place], [address], 09/24/2025 11:00:36 Medication Orders hydroxyzi ne HCl 25 mg tablet 2024 025 [id number], [address], [place], [id number], 09/06/2025 10:42:08 cyclobenz aprine 10 mg tablet 2019 020 [id number], [address], [place], [id number], 04/29/2023 14:27:30 butalbita l-acetami nophen-ca ffeine 50 mg-325 mg-40 mg tablet 2019 020 [email or web address] [id number], [address], [place], [id number], 04/29/2023 14:25:43 Patient TargetsNo targets recorded. Patient Instructions Encounter Date Encounter Id Patient Instructions Last Modified By Organization Details Last Modified Time 10/24/2020 [id number] A healthy lifestyle: care instructions Not available 10/24/2020 11:30:42 gastroesophageal reflux disease (GERD): care instructions Not available 10/24/2020 11:30:41 Cont on current medications. Not available 10/24/2020 11:29:38 follow up in 4 weeks, may need labs prior to visit pending medical records; please fill out medical records release forms I have reviewed the provider's note and I agree with the documented assessment and plan. HLF [email or web address] Not available 10/24/2020 21:39:38 04/29/2023 [id number] A healthy lifestyle: care instructions Not available 04/29/2023 15:17:07 Take all antibiotics prescribed to you. If any fever or increase in pain, call/return to office. Not available 05/05/2023 22:04:17 dwp labs needed, plan pending results I was present and available in the family medicine clinic to discuss the patient's care during the appointment and the case was discussed with me. I agree with the resident's assessment and plan as documented. HL [email or web address] Not available 05/17/2023 16:09:50 02/22/2025 [id number] A healthy lifestyle: care instructions Not available 02/22/2025 10:20:43 learning about m ood disorders Not available 02/22/2025 10:20:43 Continue all medications as prescribed. Not available 02/22/2025 10:19:13 dwp labs needed, plan pending results Not available 02/22/2025 10:21:12 09/06/2025 [id number] A healthy lifestyle: care instructions Not available 09/06/2025 10:54:50 learning about m ood disorders Not available 09/06/2025 10:41:57 Continue all medications as prescribed. Not available 09/06/2025 10:39:50 Follow-up 3 kayla for drug compliance Not available 09/10/2025 17:56:03 Reason for Referral Patient has appt on Wednesday, May 10 at 8am. Thank you Referring Physician: Gabby Bonilla, Family Medicine, Encounter Date: 04/29/2023 Results Created Date Observation Date Name Description Value Unit Range Abnormal Flag Note LastModifiedBy Organization Detail LastModifiedTime 04/29/2004/29/2023 LIPID PANEL cholesterol, total 187.8 mg/dL 140.0- 200.0 Not Available [facility] [address] [place], [address], 04/30/2023 03:08:15 04/29/20 23 04/29/2023 LIPID PANEL triglyceride s 128 mg/dL <=150 Not Available [facility] [address] [place], [address], 04/30/2023 03:08:15 04/29/2004/29/2023 LIPID PANEL HDL cholesterol 45.9 mg/dL 40.0-1 00.0 Not Available [facility] [address] [place], [address], 04/30/2023 03:08:15 04/29/20 23 04/29/2023 LIPID PANEL VLDL cholesterol sukumar 25.60 mg/dL 5.00-4 0.00 Not Available [facility] [address] [place], [address], 04/30/2023 03:08:15 04/29/20 23 04/29/2023 LIPID PANEL LDL chol calc ([facility]) 119.0 mg/dL 0.0-99 .0 above high normal Not Available [facility] [address] [place], [address], 04/30/2023 03:08:15 04/29/20 23 04/29/2023 COMP. METAB OLIC PANEL (14) glucose 84 mg/dL 65-99 ANION GP 15.0 mmol/ L N OSMOL 285.0 mOsM/ L N REFER ENCE RANGE : 275.0 -301. 0 Not Available [facility] [address] [place], [address], 04/30/2023 03:08:16 04/29/20 23 04/29/2023 COMP. METAB OLIC PANEL (14) BUN 21 mg/dL 8-26 Not Available [facility] [address] [place], [address], 04/30/2023 03:08:16 04/29/20 23 04/29/2023 COMP. METAB OLIC PANEL (14) creatinine 0.75 mg/dL 0.50-1 .40 Not Available [facility] [address] [place], [address], 04/30/2023 03:08:16 04/29/20 23 04/29/2023 COMP. METAB OLIC PANEL (14) eGFR 109 mL/mi n/1.7 3 >=60 Not Available [facility] [address] [place], [address], 04/30/2023 03:08:16 04/29/20 23 04/29/2023 COMP. METAB OLIC PANEL (14) BUN/creatini ne ratio 27.0 Not Available [facility] [address] [place], [address], 04/30/2023 03:08:16 04/29/20 23 04/29/2023 COMP. METAB OLIC PANEL (14) sodium 142.0 mmol/ L 136.0- 144.0 Not Available [facility] [address] [place] [address], [address], 04/30/2023 03:08:16 04/29/20 23 04/29/2023 COMP. METAB OLIC PANEL (14) potassium 4.6 mmol/ L 3.5-5. 3 Not Available [facility] [address] [place] [address], [address], 04/30/2023 03:08:16 04/29/20 23 04/29/2023 COMP. METAB OLIC PANEL (14) chloride 107 mmol/ l 101-11 1 Not Available [facility] [address] [place] [address], [address], 04/30/2023 03:08:16 04/29/20 23 04/29/2023 COMP. METAB OLIC PANEL (14) carbon dioxide, total 25.0 mmol/ L 21.0-3 2.0 Not Available [facility] [address] [place] [address], [address], 04/30/2023 03:08:16 04/29/20 23 04/29/2023 COMP. METAB OLIC PANEL (14) calcium 9.4 mg/dL 8.2-10 .0 Not Available [facility] [address] [place] [address], [address], 04/30/2023 03:08:16 04/29/20 23 04/29/2023 COMP. METAB OLIC PANEL (14) protein, total 6.5 g/dL 6.7-8. 2 below low normal Not Available [facility] [address] [place] [address], [address], 04/30/2023 03:08:16 04/29/20 23 04/29/2023 COMP. METAB OLIC PANEL (14) albumin 3.8 g/dL 3.5-5. 5 Not Available [facility] [address] [place], [address], 04/30/2023 03:08:16 04/29/20 23 04/29/2023 COMP. METAB OLIC PANEL (14) globulin, total 2.7 g/dL 1.5-4. 5 Not Available [facility] [address] [place], [address], 04/30/2023 03:08:16 04/29/20 23 04/29/2023 COMP. METAB OLIC PANEL (14) A/G ratio 1.0 Not Available [facility] Department [address] [place], [address], 04/30/2023 03:08:16 04/29/20 23 04/29/2023 COMP. METAB OLIC PANEL (14) bilirubin, total 0.2 mg/dL 0.0-1. 2 Not Available [facility] [address] [place], [address], 04/30/2023 03:08:16 04/29/20 23 04/29/2023 COMP. METAB OLIC PANEL (14) alkaline phosphatase 106.9 IU/L 42.0-1 21.0 Not Available [facility] [address] [place], [address], 04/30/2023 03:08:16 04/29/20 23 04/29/2023 COMP. METAB OLIC PANEL (14) AST (SGOT) 26.2 U/L 10.0-4 2.0 Not Available [facility] [address] [place], [address], 04/30/2023 03:08:16 04/29/20 23 04/29/2023 COMP. METAB OLIC PANEL (14) ALT (SGPT) 25.0 U/L 10.0-6 0.0 Not Available [facility] [address] [place], [address], 04/30/2023 03:08:16 04/29/20 23 04/29/2023 CBC WITH DIFFE RENTI AL/PL ATELE T WBC 8.1 K/uL 3.4-10 .8 Not Available [facility] [address] [place], [address], 04/30/2023 03:08:16 04/29/20 23 04/29/2023 CBC WITH DIFFE RENTI AL/PL ATELE T RBC 4.1 M/uL 4.2-5. 4 below low normal Not Available [facility] [address] [place], [address], 04/30/2023 03:08:16 04/29/20 23 04/29/2023 CBC WITH DIFFE RENTI AL/PL ATELE T hemoglobin 12.5 g/dL 11.5-1 5.5 Not Available [facility] [address] [place], [address], 04/30/2023 03:08:16 04/29/20 23 04/29/2023 CBC WITH DIFFE RENTI AL/PL ATELE T hematocrit 40.5 % 36.0-4 8.0 Not Available [facility] [address] [place], [address], 04/30/2023 03:08:16 04/29/20 23 04/29/2023 CBC WITH DIFFE RENTI AL/PL ATELE T MCV 98 fL 80-95 above high normal Not Available [facility] [address] [place], [address], 04/30/2023 03:08:16 04/29/20 23 04/29/2023 CBC WITH DIFFE RENTI AL/PL ATELE T MCH 30 pg 27-32 Not Available [facility] [address] [place], [address], 04/30/2023 03:08:16 04/29/20 23 04/29/2023 CBC WITH DIFFE RENTI AL/PL ATELE T MCHC 31 g/dL 32-36 below low normal Not Available [facility] [address] [place], [address], 04/30/2023 03:08:16 04/29/20 23 04/29/2023 CBC WITH DIFFE RENTI AL/PL ATELE T RDW 13.5 % 11.5-1 4.5 Not Available [facility] [address] [place], [address], 04/30/2023 03:08:16 04/29/20 23 04/29/2023 CBC WITH DIFFE RENTI AL/PL ATELE T platelets 406 K/uL 155-37 9 above high normal MPV 11.3 FL 8.9-1 2.7 N Not Available [facility] [address] [place], [address], 04/30/2023 03:08:16 04/29/20 23 04/29/2023 CBC WITH DIFFE RENTI AL/PL ATELE T neutrophils 59.1 % 40.0-7 4.0 Not Available [facility] [address] [place], [address], 04/30/2023 03:08:16 04/29/20 23 04/29/2023 CBC WITH DIFFE RENTI AL/PL ATELE T lymphs 30.3 % 14.0-4 6.0 Not Available [facility] [address] [place], [address], 04/30/2023 03:08:16 04/29/20 23 04/29/2023 CBC WITH DIFFE RENTI AL/PL ATELE T monocytes 6.6 % 4.0-12 .0 Not Available [facility] [address] [place], [address], 04/30/2023 03:08:16 04/29/20 23 04/29/2023 CBC WITH DIFFE RENTI AL/PL ATELE T eos 3 % 0-5 Not Available [facility] [address] [place], [address], 04/30/2023 03:08:16 04/29/20 23 04/29/2023 CBC WITH DIFFE RENTI AL/PL ATELE T basos 0.6 % 0.0-1. 0 Not Available [facility] [address] [place], [address], 04/30/2023 03:08:16 04/29/20 23 04/29/2023 CBC WITH DIFFE RENTI AL/PL ATELE T neutrophils (absolute) 4.8 K/uL 1.4-7. 0 Not Available [facility] [address] [place], [address], 04/30/2023 03:08:16 04/29/20 23 04/29/2023 CBC WITH DIFFE RENTI AL/PL ATELE T lymphs (absolute) 2.4 K/uL 0.7-3. 1 Not Available [facility] [address] [place], [address], 04/30/2023 03:08:16 04/29/20 23 04/29/2023 CBC WITH DIFFE RENTI AL/PL ATELE T monocytes(ab solute) 0.5 K/uL 0.1-0. 9 Not Available [facility] [address] [place], [address], 04/30/2023 03:08:16 04/29/20 23 04/29/2023 CBC WITH DIFFE RENTI AL/PL ATELE T eos (absolute) 0.2 K/uL 0.0-0. 4 Not Available [facility] [address] [place], [address], 04/30/2023 03:08:16 04/29/20 23 04/29/2023 CBC WITH DIFFE RENTI AL/PL ATELE T baso (absolute) 0.1 K/uL 0.0-0. 3 Not Available [facility] [address] [place], [address], 04/30/2023 03:08:16 04/29/20 23 04/29/2023 CBC WITH DIFFE RENTI AL/PL ATELE T immature granulocytes 0.5 % Not Available [facility] Department [address] [place], [address], 04/30/2023 03:08:16 04/29/20 23 04/29/2023 CBC WITH DIFFE RENTI AL/PL ATELE T immature grans (abs) 0.0 K/uL Not Available [facility] [address] [place], [address], 04/30/2023 03:08:16 04/29/20 23 04/29/2023 CBC WITH DIFFE RENTI AL/PL ATELE T NRBC 0 % Not Available [facility] [address] [place], [address], 04/30/2023 03:08:16 04/29/20 23 04/30/2023 TSH RFX ON ABNOR MAL TO FREE T4 TSH 3.780 uIU/m L 0.450- 4.500 Not Available [facility] ([facility]) [address] [place], [address], 04/30/2023 10:37:16 04/29/2005/03/2023 ANAER OBIC AND AEROB IC CULTU RE anaerobic culture Final report Not Available [facility] ([facility]) [address] [facility], [place], [address], 05/05/2023 09:15:15 04/29/2005/03/2023 ANAER OBIC AND AEROB IC CULTU RE result 1 Commen t No anaer obic growt h in 72 hours . Not Available [facility] ([facility]) [address] [facility], [place], [address], 05/05/2023 09:15:15 04/29/20 23 05/05/2023 ANAER OBIC AND AEROB IC CULTU RE aerobic culture Final report abnormal Not Available [facility] ([facility]) [address] [facility], [place], [address], 05/05/2023 09:15:15 04/29/20 23 05/05/2023 ANAER OBIC AND AEROB IC CULTU RE result 1 Entero bacter specie s abnormal Scant growt h Susce ptibi lity profi le is consi stent with a proba ble ESBL. Multi -Drug Resis tant Organ ism Not Available [facility] ([facility]) [address] [facility], [place], [address], 05/05/2023 09:15:15 04/29/20 23 05/05/2023 ANAER OBIC AND AEROB IC CULTU RE antimicrobia l susceptibili ty Commen t S = Susce ptibl e; I = Inter media te; R = Resis tant P = Posit tri; N = Negat tri MICS are expre ssed in micro grams per mL Antib iotic RSLT# 1 RSLT# 2 RSLT# 3 RSLT# 4 Amoxi cilli n/Cla vulan ic Acid R Cefaz renan R Cefep wander R Cefur oxime R Cipro floxa lyly I Genta micin R Imipe nem S Levof loxac in S Merop enem S Tetra cycli ne R Tobra mycin R Trime thopr im/Rutledge lfa R Not Available [facility] ([facility]) [address] [facility], [place], [address], 05/05/2023 09:15:15 04/29/20 23 05/03/2023 ANAER OBIC AND AEROB IC CULTU RE anaerobic culture Final report Not Available [facility] ([facility]) [address] [place], [address], 05/05/2023 09:15:18 04/29/20 23 05/03/2023 ANAER OBIC AND AEROB IC CULTU RE result 1 Commen t No anaer obic growt h in 72 hours . Not Available [facility] ([facility]) [address] [facility], [place], [address], 05/05/2023 09:15:18 04/29/20 23 05/05/2023 ANAER OBIC AND AEROB IC CULTU RE aerobic culture Final report abnormal Not Available [facility] ([facility]) [address] [facility], [place], [address], 05/05/2023 09:15:18 04/29/20 23 05/05/2023 ANAER OBIC AND AEROB IC CULTU RE result 1 Commen t abnormal Enter obact er horma echei Scant growt h Susce ptibi lity profi le is consi stent with a proba ble ESBL. Multi -Drug Resis tant Organ ism Not Available [facility] ([facility]) [address] [facility], [place], [address], 05/05/2023 09:15:18 04/29/20 23 05/05/2023 ANAER OBIC AND AEROB IC CULTU RE antimicrobia l susceptibili ty Commen t S = Susce ptibl e; I = Inter media te; R = Resis tant P = Posit tri; N = Negat tri MICS are expre ssed in micro grams per mL Antib iotic RSLT# 1 RSLT# 2 RSLT# 3 RSLT# 4 Amoxi cilli n/Cla vulan ic Acid R Cefaz renan R Cefep wander R Ceftr iaxon e R Cefur oxime R Cipro floxa lyly I Ertap enem S Genta micin R Imipe nem S Levof loxac in S Merop enem S Tetra cycli ne R Tobra mycin R Trime thopr im/Rutledge lfa R Not Available [facility] ([facility]) [address] [facility], [place], [address], 05/05/2023 09:15:18 02/23/20 25 02/23/2025 LIPID PANEL cholesterol, total 208 mg/dL 100-19 9 above high normal Not Available [facility] ([facility]) [address] [place], [address], 02/23/2025 10:49:56 02/23/20 25 02/23/2025 LIPID PANEL triglyceride s 155 mg/dL 0-149 above high normal Not Available [facility] ([facility]) [address] [place], [address], 02/23/2025 10:49:56 02/23/20 25 02/23/2025 LIPID PANEL HDL cholesterol 50 mg/dL >39 Not Available [facility]) [address] [place], [address], 02/23/2025 10:49:56 02/23/20 25 02/23/2025 LIPID PANEL VLDL cholesterol sukumar 28 mg/dL 5-40 Not Available [facility] ([facility]) [address] [place], [address], 02/23/2025 10:49:56 02/23/20 25 02/23/2025 LIPID PANEL LDL chol calc ([facility]) 130 mg/dL 0-99 above high normal Not Available [facility] ([facility]) [address] [place], [address], 02/23/2025 10:49:56 02/23/20 25 02/23/2025 COMP. METAB OLIC PANEL (14) glucose 86 mg/dL 70-99 Not Available [facility] ([facility]) [address] [place], [address], 02/23/2025 10:49:57 02/23/20 25 02/23/2025 COMP. METAB OLIC PANEL (14) BUN 14 mg/dL 6-20 Not Available [facility] ([facility]) [address] [place], [address], 02/23/2025 10:49:57 02/23/20 25 02/23/2025 COMP. METAB OLIC PANEL (14) creatinine 0.70 mg/dL 0.57-1 .00 Not Available [facility] ([facility]) [address] [place], [address], 02/23/2025 10:49:57 02/23/20 25 02/23/2025 COMP. METAB OLIC PANEL (14) eGFR 117 mL/mi n/1.7 3 >59 Not Available [facility] ([facility]) [address] [place], [address], 02/23/2025 10:49:57 02/23/20 25 02/23/2025 COMP. METAB OLIC PANEL (14) BUN/creatini ne ratio 04 08- Not Available [facility] ([facility]) [address] [place], [address], 02/23/2025 10:49:57 02/23/20 25 02/23/2025 COMP. METAB OLIC PANEL (14) sodium 139 mmol/ L 134-14 4 Not Available [facility] ([facility]) [address] [place], [address], 02/23/2025 10:49:57 02/23/20 25 02/23/2025 COMP. METAB OLIC PANEL (14) potassium 5.0 mmol/ L 3.5-5. 2 Not Available [facility] ([facility]) [address] [place], [address], 02/23/2025 10:49:57 02/23/20 25 02/23/2025 COMP. METAB OLIC PANEL (14) chloride 106 mmol/ L 96-106 Not Available [facility] ([facility]) [address] [place], [address], 02/23/2025 10:49:57 02/23/20 25 02/23/2025 COMP. METAB OLIC PANEL (14) carbon dioxide, total 18 mmol/ L 20-29 below low normal Not Available [facility] ([facility]) [address] [place], [address], 02/23/2025 10:49:57 02/23/20 25 02/23/2025 COMP. METAB OLIC PANEL (14) calcium 8.8 mg/dL 8.7-10 .2 Not Available [facility] ([facility]) [address] [place], [address], 02/23/2025 10:49:57 02/23/20 25 02/23/2025 COMP. METAB OLIC PANEL (14) protein, total 6.5 g/dL 6.0-8. 5 Not Available [facility] ([facility]) [address] [place], [address], 02/23/2025 10:49:57 02/23/20 25 02/23/2025 COMP. METAB OLIC PANEL (14) albumin 4.0 g/dL 3.9-4. 9 Not Available [facility] ([facility]) [address] [place], [address], 02/23/2025 10:49:57 02/23/20 25 02/23/2025 COMP. METAB OLIC PANEL (14) globulin, total 2.5 g/dL 1.5-4. 5 Not Available [facility] ([facility]) [address] [place], [address], 02/23/2025 10:49:57 02/23/20 25 02/23/2025 COMP. METAB OLIC PANEL (14) bilirubin, total 0.3 mg/dL 0.0-1. 2 Not Available [facility] ([facility]) [address] [place], [address], 02/23/2025 10:49:57 02/23/20 25 02/23/2025 COMP. METAB OLIC PANEL (14) alkaline phosphatase 91 IU/L 44-121 Not Available [facility]) [address] [facility], [place], [address], 02/23/2025 10:49:57 02/23/20 25 02/23/2025 COMP. METAB OLIC PANEL (14) AST (SGOT) 27 IU/L 0-40 Not Available [facility] ([facility]) [address] [place], [address], 02/23/2025 10:49:57 02/23/20 25 02/23/2025 COMP. METAB OLIC PANEL (14) ALT (SGPT) 26 IU/L 0-32 Not Available [facility] ([facility]) [address] [place], [address], 02/23/2025 10:49:57 02/23/20 25 02/23/2025 TSH RFX ON ABNOR MAL TO FREE T4 TSH 4.880 uIU/m L 0.450- 4.500 above high normal Not Available [facility] ([facility]) [address] [place], [address], 02/23/2025 10:49:59 02/23/20 25 02/23/2025 HEMOG LOBIN A1C hemoglobin A1C 5.4 % 4.8-5. 6 Predi abete s: 5.7 - 6.4 Diabe audie: >6.4 Glyce [place] contr ol for adult s with diabe audie: <7.0 Not Available [facility] ([facility]) [address] [place], [address], 02/23/2025 10:50:00 02/23/20 25 02/23/2025 T4F T4,free (direct) 1.40 NG/dL 0.82-1 .77 Not Available [facility] ([facility]) [address] [place], [address], 02/23/2025 10:50:02 02/23/20 25 02/23/2025 CBC, PLATE LET, NO DIFFE RENTI AL WBC 5.5 x10e3 /uL 3.4-10 .8 Not Available [facility] ([facility]) [address] [facility], [place], [address], 02/23/2025 10:50:03 02/23/20 25 02/23/2025 CBC, PLATE LET, NO DIFFE RENTI AL RBC 4.83 x10e6 /uL 3.77-5 .28 Not Available [facility] ([facility]) [address] [facility], [place], [address], 02/23/2025 10:50:03 02/23/20 25 02/23/2025 CBC, PLATE LET, NO DIFFE RENTI AL hemoglobin 15.6 g/dL 11.1-1 5.9 Not Available [facility] ([facility]) [address] [facility], [place], [address], 02/23/2025 10:50:03 02/23/20 25 02/23/2025 CBC, PLATE LET, NO DIFFE RENTI AL hematocrit 46.5 % 34.0-4 6.6 Not Available [facility] ([facility]) [address] [facility], [place], [address], 02/23/2025 10:50:03 02/23/20 25 02/23/2025 CBC, PLATE LET, NO DIFFE RENTI AL MCV 96 fL 79-97 Not Available [facility] ([facility]) [address] [facility], [place], [address], 02/23/2025 10:50:03 02/23/20 25 02/23/2025 CBC, PLATE LET, NO DIFFE RENTI AL MCH 32.3 pg 26.6-3 3.0 Not Available [facility] ([facility]) [address] [facility], [place], [address], 02/23/2025 10:50:03 02/23/20 25 02/23/2025 CBC, PLATE LET, NO DIFFE RENTI AL MCHC 33.5 g/dL 31.5-3 5.7 Not Available [facility] ([facility]) [address] [facility], [place], [address], 02/23/2025 10:50:03 02/23/20 25 02/23/2025 CBC, PLATE LET, NO DIFFE RENTI AL RDW 12.6 % 11.7-1 5.4 Not Available [facility] ([facility]) [address] [facility], [place], [address], 02/23/2025 10:50:03 02/23/20 25 02/23/2025 CBC, PLATE LET, NO DIFFE RENTI AL platelets 260 x10e3 /uL 150-45 0 Not Available [facility] ([facility]) [address] [facility], [place], [address], 02/23/2025 10:50:03 02/23/20 25 02/23/2025 VITAM IN D, 25-HY DROXY vitamin D, 25-hydroxy 16.5 NG/mL 30.0-1 00.0 below low normal Vitam in D defic iency has been defin ed by the Insti tute of Medic ine and an Endoc rine Socie ty pract ice guide line as a level of serum 25-OH vitam in D less than 20 ng/mL (1,2) . The Endoc rine Socie ty went on to formerly [facility] er defin e vitam in D insuf ficie ncy as a level betwe en 21 and 29 ng/mL (2). 1. IOM (Inst itute of Medic ine). 2009. Dieta ry refer ence intak es for calci um and D. Raymundo akhtar [place]: The [facility] Press . 2. Ramone tejada [place], Shane mendez [place], Niranjan off-F errar i [place], et al. Evalu ation , treat ment, and preve ntion of vitam in D defic iency : an Endoc rine Socie ty clini sukumar pract ice guide line. JCEM. 2010; 96(7) :1911 -30. Not Available [facility] ([facility]) [address] [place], [address], 02/23/2025 10:50:04 09/06/2009/06/2025 [id number] 0 12+OX YCODO NE+CR T-SCR please note: COMMEN T This assay provi julia a preli minar y uncon firme d whitney tical test resul t that may be suita ble for clini sukumar manag ement of patie nts in certa in situa tions . Drug- test resul ts shoul d be inter prete d in the aram xt of clini sukumar infor nicola kirkpatrick. Patie nt metab olic varia bles, speci fic drug chemi stry, and speci men orestes cteri stics can affec t test outco me. Techn ical consu ltati on is avail able if a test resul t is incon siste nt with an expec cristhian outco me. Email : [email or web address] [email or web address] Phone : [phone] Not Available [facility] ([facility]) [address] [place], [address], 09/07/2025 20:09:58 09/06/2009/07/2025 [id number] 0 12+OX YCODO NE+CR T-SCR amphetamines screen, urine NEGATI VE NG/mL cutoff =1000 Not Available [facility] ([facility]) [address] [place], [address], 09/07/2025 20:09:58 09/06/20 25 09/07/2025 [id number] 0 12+OX YCODO NE+CR T-SCR barbiturates screen, urine NEGATI VE NG/mL cutoff =200 Not Available [facility] ([facility]) [address] [place], [address], 09/07/2025 20:09:58 09/06/20 25 09/07/2025 [id number] 0 12+OX YCODO NE+CR T-SCR benzodiazepi charleen screen, urine NEGATI VE NG/mL cutoff =200 Not Available [facility] ([facility]) [address] [place], [address], 09/07/2025 20:09:58 09/06/20 25 09/07/2025 [id number] 0 12+OX YCODO NE+CR T-SCR cannabinoid screen, urine POSITI VE NG/mL cutoff =20 abnormal Not Available [facility] ([facility]) [address] [place], [address], 09/07/2025 20:09:58 09/06/20 25 09/07/2025 [id number] 0 12+OX YCODO NE+CR T-SCR cocaine (metab.) screen, urine NEGATI VE NG/mL cutoff =300 Not Available [facility] ([facility]) [address] [place], [address], 09/07/2025 20:09:58 09/06/20 25 09/07/2025 [id number] 0 12+OX YCODO NE+CR T-SCR opiate screen, urine NEGATI VE NG/mL cutoff =300 Opiat e test inclu julia Codei ne, Morph ine, [place] morph one, [place] codon e. Not Available [facility] ([facility]) [address] [place], [address], 09/07/2025 20:09:58 09/06/20 25 09/07/2025 [id number] 0 12+OX YCODO NE+CR T-SCR oxycodone/ox ymorphone, urine NEGATI VE NG/mL cutoff =100 Test inclu julia Oxyco done and Oxymo rphon e Not Available [facility] ([facility]) [address] [place], [address], 09/07/2025 20:09:58 09/06/20 25 09/07/2025 [id number] 0 12+OX YCODO NE+CR T-SCR phencyclidin e screen, urine NEGATI VE NG/mL cutoff =25 Not Available [facility] ([facility]) [address] [place], [address], 09/07/2025 20:09:58 09/06/20 25 09/07/2025 [id number] 0 12+OX YCODO NE+CR T-SCR methadone screen, urine NEGATI VE NG/mL cutoff =300 Not Available [facility] ([facility]) [address] [place], [address], 09/07/2025 20:09:58 09/06/20 25 09/07/2025 [id number] 0 12+OX YCODO NE+CR T-SCR propoxyphene screen, urine NEGATI VE NG/mL cutoff =300 Not Available [facility] ([facility]) [address] [facility], [place], [address], 09/07/2025 20:09:58 09/06/20 25 09/07/2025 [id number] 0 12+OX YCODO NE+CR T-SCR meperidine screen, urine NEGATI VE NG/mL cutoff =200 This test was devel oped and its perfo rmanc e orestes cteri stics deter mined by [facility]. It has not been clear ed or appro romulo by the Food and Drug Admin istra tion. Not Available [facility] ([facility]) [address] [place], [address], 09/07/2025 20:09:58 09/06/20 25 09/07/2025 [id number] 0 12+OX YCODO NE+CR T-SCR fentanyl, urine NEGATI VE pg/mL cutoff =2000 Test inclu julia Fenta nyl and Norfe ntany l This test was devel oped and its perfo rmanc e orestes cteri stics deter mined by [facility]. It has not been clear ed or appro romulo by the Food and Drug Admin istra tion. Not Available [facility] ([facility]) [address] [place], [address], 09/07/2025 20:09:58 09/06/20 25 09/07/2025 [id number] 0 12+OX YCODO NE+CR T-SCR tramadol screen, urine NEGATI VE NG/mL cutoff =200 Not Available [facility] ([facility]) [address] [facility], [place], [address], 09/07/2025 20:09:58 09/06/20 25 09/07/2025 [id number] 0 12+OX YCODO NE+CR T-SCR creatinine, urine 124.6 mg/dL 20.0-3 00.0 Not Available [facility] ([facility]) [address] [facility], [place], [address], 09/07/2025 20:09:58 09/06/20 25 09/07/2025 [id number] 0 12+OX YCODO NE+CR T-SCR pH, urine 5.4 4.5-8. 9 Not Available [facility] ([facility]) [address] [facility], [place], [address], 09/07/2025 20:09:58 04/29/20 23 04/26/2023 CT, abdom en + pelvi s, w/o contr ast No observ ation record ed. [facility] [address] [facility], [place], [address], 05/10/2023 09:26:54 09/24/20 25 09/24/2025 US, abdom en, compl ete No observ ation record ed. [facility] [address] [facility], [place], [address], 09/26/2025 10:42:31 09/24/20 25 09/24/2025 XR, lumbo sacra l spine , 2 or 3 view No observ ation record ed. [facility] [address], [place], [address], 09/27/2025 10:00:34 09/24/20 25 09/24/2025 XR, thora cic spine , 2 view No observ ation record ed. [facility] [address], [place], [address], 09/26/2025 10:42:31 Result Notes None recorded. Problems Name Problem SNOMED Code Status Onset Date Resolution Date Notes Provider Name and Address Organization Details Recorded Time Migraine 99872873 Active 2019 Maeve Lizarraga MA null, [place] - [facility] 0 10:46:01 Fibromyalgi a 885478575 Active 2019 Maeve Lizarraga [place], [place] [facility] 0 10:46:07 History of heartburn 2056705547674 9 Active 2019 Gabby Bonilla APN, FISH CUTTER-C Attn: Ashish g,[address] [facility], [place], [address], [place] - [facility] 0 11:20:47 Obesity 361310875 Active 2024 Gabby Bonilla APN FISH CUTTER-C Attn: Kirillin g,[address] [facility], [place], [address], [place] [facility] 5 10:08:12 Mood disorder 13015807 Active 2024 Gabby Bonilla APN, FISH CUTTER-C Attn: Ashish g,[address] [facility], [place], [address], [place] - [facility] 5 10:18:45 Problem Notes None recorded. Procedures Surgical History Date Name Laterality Status Provider Name and Address Organization Details Recorded Time 03/10/20 23 abdominoplasty completed Carlie López [place] - [facility] 04/29/2023 14:20:53 Arthr tristan singh df tyler&/tib completed Maeve Lizarraga [place] - [facility] 10/24/2020 10:45:32 Imaging Results None recorded. Procedure Notes None recorded. Medical Equipment None Reported. Allergies Allergen ID Allergen Name Allergen Category Reaction Reaction Severity Criticality Documentation Date Start Date Code Code System Note Provider Name and Address Organization Details Recorded Time 092017 ibuprofen medicatio n nausea Not available Not available 10/24/2020 5640 RxNorm Maeve Lizarraga MA null, [place] - [facility] 0 10:37:04 854268 Adhesive agent (substanc e) environme nt,medica tion rash Not available high 09/05/20252022 47527 0007 SNOMED Paper tape Not Available [facility] - External Data Service - prod 5 [...] No t Available Vitals Date Recorded Body weight Body mass index (BMI) Body height Oxygen saturation Respiratory rate Body temperature Heart rate Systolic And Diastolic Provider Name and Address Organization Details Last Updated DateTime 5 672697. 74 g 53.6 kg/m2 165.1 cm 98 % 16 /min 97.8 [degF] 88 /min 128/86 mm[Hg] YANNA Cardona [facility] 5 10:03:30 Date Recorded Body height Body mass index (BMI) Body weight Oxygen saturation Heart rate Respiratory rate Body temperature Systolic And Diastolic Provider Name and Address Organization Details Last Updated DateTime 3 165.1 cm 46.4 kg/m2 571940. 27 g 98 % 103 /min 16 /min 98.4 [degF] 126/84 mm[Hg] Carlie López [facility] 3 14:34:32 Date Recorded Body height Body mass index (BMI) Body weight Oxygen saturation Respiratory rate Body temperature Heart rate Systolic And Diastolic Provider Name and Address Organization Details Last Updated DateTime 5 165.1 cm 55.1 kg/m2 194958. 07 g 98 % 16 /min 98 [degF] 84 /min 128/84 mm[Hg] Carlie López Maricruz [facility] 5 10:37:27 Social History Question Answer Notes LastModified by Organizat ion Details LastModified Time Tobacco Smoking Status Never Smoker Maeve Lizarraga MA [facility], [place] - [facility] 10/24/2020 10:39:09 Do You Have An Advance Directive? No Information n ot available 10/24/2020 Are You Blind Or Do You Have Difficulty Seeing? No [email or web address] Information n ot available 04/29/2023 What Is [...] Do You Have Serious Difficulty Hearing? No [email or web address] Information not available 04/29/2023 What Type Of [...] How Many Children Do You Have? 2 [email or web address] Information not available 04/29/2023 Performs Monthly Self-breast Exam? No Information no t available 10/24/2020 What Is Your Relationship Status? Single [email or web address] Information not available 04/29/2023 Do You Use Your Seat Belt Or Car Seat Routinely? Yes [email or web address] Information not available 04/29/2023 Seat Belts Used Routinely Yes Information not available 10/24/2020 Smoke Alarm In Home Yes Information not available 10/24/2020 Do You Have Smoke And Carbon Monoxide Detectors In Your Home? Yes [email or web address] Information not available 04/29/2023 Are You Passively Exposed To Smoke? No [email or web address] Information no t available 04/29/2023 How Much Tobacco Do You Smoke? No Information not available 10/24/2020 General Stress Level Medium Information not available 10/24/2020 Do You Use Sunscreen Routinely? Yes Information not available 10/24/2020 Has Tobacco Cessation Counseling Been Provided? Yes Information not available 04/29/2023 On What Date Was Tobacco Cessation Counseling Provided? 09/06/2025 Information not available 09/06/2025 Sex: Female Functional Status Question Answer Note LastModified by Organizat ion Details LastModified Time Do you use any illicit or recreational drugs? Yes [email or web address] Information not available 04/29/2023 Do you or have you ever used any other forms of tobacco or nicotine? No Information not available 04/29/2023 What is your level of alcohol consumption? None [email or web address] Information not available 04/29/2023 Do you or have you ever used smokeless tobacco? Never used smokeless tobacco Information not available 10/24/2020 Are you currently employed? Yes Information not available 02/22/2025 Are you able to care for yourself independently? Yes [email or web address] Information not available 04/29/2023 What is your [...] anxious, or unable to sleep at night)? [id number] Information not available 09/06/2025 Family History Relationship Description Onset Age of this Age Resolved Age Notes LastModified by Organization Details LastModified Time Father Diabetes mellitus [email or web address] Not available 2019 10:45:13 Paternal Grandmother Diabetes mellitus [email or web address] Not available 04/29 14:29:15 Paternal Grandfather Hypertensive disorder [email or web address] Not available 04/29 14:29:27 Medical History Condition Response Coronary Artery Disease N Other N Atrial Fibrillation N High Blood Pressure N Thyroid Problems N Kidney or Bladder Problems N Depression N COPD N Blood Clots N GI Problems Y Skin Problems N Eating Disorder N Anemia N Heart Attack (AK) N Diabetes N Anxiety Disorder Y Muscle, Joint, or Bone Problems N Seizures/Epilepsy N Acid Reflux (GERD) N Cancer N Stroke N Allergies N Asthma N ADHD N Substance Abuse N High [...] Gabby Bonilla APN, FNP-C Attn: Accounting[address] [place], [address], [facility] [place] 04/29/2023 14:37:28 Tdap 02/01/20 18 completed Gabby Bonilla APN, FNP-C Attn: Accounting[address] [facility], [place], [address], [facility] [place] 02/22/2025 10:07:55 Tdap 03/07/20 19 completed Gabby Bonilla APN, FNP-C Attn: Accounting,[address], [place], [address], [facility] 02/22/2025 10:07:55 Influenza, split virus, quadrivalent, preservative 10/24/20 20 cancelled patient objection Gabby Bonilla APN, PAMELA Attn: Accounting,[address], [place], [address], [facility] 10/24/2020 11:30:42 Hep A, adult 08/30/20 completed Ciara Urrutia LPN [facility], [place] - [place] 08/30/2023 15:27:07 Past Encounters Encounter ID Performer Location Encounter Start Date Encounter Closed Date Diagnosis/Indication Diagnosis SNOMED-CT Code Diagnosis ICD10 Code Diagnosis IMO Codes Diagnosis Note [id number] MD Jyotsna Giron (Adult Med) [address] [place] [address] 10/24/2020 08:15:13 10/25/2020 20:00:39 Adult health examination 436578218 Z00.01 may have had recent labs at prior pcp, dwp getting release signed;Enc ouraged routine BONE TENDER, vision, dental exams, well balanced diet. Influenza vaccination declined 983954708 Z28.21 Morbid obesity 091168672 E66.01 advised low fat, low cholestero l diet, regular exercise and weight reduction. Fibromyalgia 449671778 M 79.7 prn flexeril, had work up done with prior pcp, will get records History of heartburn 260 1029979 9109 Z87.19 cont otc tums; diet changes Migraine 56619535 G43.90 9 has every 1-2 weeks, dialy tension headaches, fioricet works to manage; dwp need records [id number] MD Jyotsna Giron (Adult Med) [address] [place] [address] 04/29/2023 14:09:52 05/06/2023 10:04:14 Adult health examination 662760850 Z00.01 may have had recent labs at prior pcp, dwp getting release signed;Enc ouraged routine BONE TENDER, vision, dental exams, well balanced diet. Dehiscence of external surgical incision wound 5326733462 89207 T81.31XA recent surgeries in [place] with complicati ons;need to see plastics or wound care, will send referrals Obesity 419141765 E66.9 advised low fat, low cholestero l diet, regular exercise and weight reduction. 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 Obesity 356606460 E66.9 advised low fat, low cholestero l diet, regular exercise and weight reduction. Discussed with patient GLP 1 medication s, risks, benefits, side effects, and insurance coverage or lack thereof, advise labs-month ly visits if patient would like to pursue bariatric surgery referral Mood disorder 72885345 F 40 grandma last night, [facility] phq score, will repeat at f/uOffered support to patient [id number] MD Jyotsna Giron (Adult Med) [address] [place] [address] 09/06/2025 10:25:23 09/11/2025 12:18:50 Mood disorder 53115645 F39 Patient currently seeing a therapist, was recommende d to try Vistaril, I will send prescripti on Abdominal discomfort 433 46751 R10.9 929673 Diffuse intermitte nt pain at surgical scar site, we will order ultrasound Obese class III 90053495 5 E66.813 E66.3 6742113432 advised low fat, low cholestero l diet, regular exercise and weight reduction. pt wants to try phentermin e, dwp cs policy Chronic low back pain 27 6316909 M54.50 G89.29 38419827 Tender to palpation, positive SLR, we will order x-ray, plan pending imaging Chronic th oracic back pain 8958815416 12804 M54.6 G89.29 90103026 ttp, plan pending imaging Long-term current use of drug therapy 248821117 Z79.045 3905233 CS contract and drug screen yearly per policy Health Concerns Section Related Observation LastModified by Organization Detai ls LastModified Time None Recorded Concern Status LastModified by Organization Details LastModified Time None Recorded Advance Directives Directive N: Payers Insurance Date Sequence Insurance Name Policy Number Policy Boles Covered Member ID Boles Member ID Guarantor Name 09/11/2025 1 [facility] (MEDICAID HMO) [id number] Lavonne Lundberg [id number] Lavonne Lundberg Notes Date Note Type Note Provider Name and Address Organization Details Recorded Time 10/24/2020 text/html needs to est carewent to new dr d/t ins changes and old did fibro work up; she wanted weight loss meds but dr would not rx weight gain post broken ankle; would like to be put back on phentermine medical MJ for fibro; Brianna Restrepo MD Attn: [address] [place], [address], [facility] 10/24/2020 21:39:43 04/29/2023 text/html prior phone pt to re est care: lost 60-70 pounds, prior to her recent tummy tuck; went [facility] to [facility] it done because of cost; Recent tummy tuck on 03/10 in [facility]-it got infected and went to [place] and was given abx that did not help. got abx from [place] (cipro 500mg). went back to [place] and has incision cleaned out. while in [place] they did culture on incision, came back citrobacter koseri. and was in hospital on abx for another 6 days, ripped incision open again (4th trip to hospital) and had to have it repaired,had pinrose drains and they sucked into her incisions, found the one on right side but left side never came out. got labs done at [facility], [place] after ordering them online and WBC came back normal. Ordered her own labs and testing from [facility]?? Brianna Restrepo MD Attn: Accounting[address] [facility], [place], [address], [facility] [place] 05/17/2023 16:12:32 02/22/2025 text/html Patient here for annual exam/checkup discuss weight loss options. 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
== END 2025-11-12 13:10 | disposition home or self-care (01) ==
PROVIDERS: Emergency Provider Registered Nurse; PCP Nurse Practitioner Family
DX: R05.9 Cough, unspecified (principal); F17.290 Nicotine dependence, other tobacco product, uncomplicated
CPT/HCPCS: 99213; G0463